=== PATIENT | female | born 1960 | race Caucasian/White ===

== ENCOUNTER → 2016-04-10 | Outpatient (CLI) | payer BC ==
--- NOTE | 2016-04-10 12:48 | US ---
Complete Pelvic Sonography (Transabdominal and Endovaginal) Clinical History: 55-year-old female who is perimenopausal and was noted to have a questionable fibro id during a gynecologic exam. The patient's LMP was March 04, 2016, and she is G2, P1. Rule out lei omyoma. The patient also has some excessive and/or frequent menstruation. ICD-10 Diagnostic Codes: D52.9 and N92.0. Technique: Initially, a curvilinear 5 MHz transducer was used to sonographically evaluate the pelvis, using a moderately distended urinary bladder as a window. To better assess the uterine architecture and the adnexal structures, endovaginal pelvic sonography was also performed. Cine clips are also per formed. Comparison Study: None available. Findings: Transabdominal Pelvic Sonography: The uterus is enlarged and heterogeneous in echotexture, measuring 13.9 x 7.7 x 9.9 cm. There is an intramural heterogeneously appearing fundal fibroid measuring 7.2 x 6.8 x 5.3 cm seen to the right of midline. There is an intramural vascular fibroid seen in the anteri or right mid-uterine body measuring 4.2 x 4.2 x 4.5 cm, and a third fibroid seen along the posterior left lower uterine segment, intramural in location and heterogeneous in appearance measuring 4.2 x 4. 7 x 4.2 cm. The endometrium appears mildly thickened. The right ovary is not confidently seen, howeve r, the left ovary is identified and contains a couple of follicular cysts which will be better assess ed endovaginally. There is no free fluid observed. Endovaginal Pelvic Sonography: There are some small nabothian cysts at the level of the cervix. The r ight ovary measures 1.8 x 0.8 x 1.7 cm, with some venous flow observed. The left ovary measures 3.8 x 2.7 x 4.3 cm, and contains a 3.6 x 2.2 x 2.6 cm avascular anechoic cyst with anterior reverberation artifact, as well as a 2.6 x 1.6 x 2.3 cm anechoic cyst. Intraovarian vascular flow is documented. Th e endometrial thickness is 10 mm. There is no free fluid. On the cine clip (A:6), there are some mild left-sided venous varices measuring 3.4-4.2 mm in diameter, consistent with some mild pelvic venous congestion. Impression: 1. Uteromegaly and myometrial heterogeneity with three discrete fibroids observed, as above enumerate d. 2. Mild thickening of the endometrium measuring 10 mm. 3. There are a couple of simple cysts associated with the left ovary measuring up to 2.6-3.6 cm in di ameter. 4. Mild left-sided pelvic venous congestion.
== END ==
LOC: FIMAGING 09:24
PROVIDERS: ATTEND Internal Medicine
DX: D25.1 Intramural leiomyoma of uterus (principal); N85.2 Hypertrophy of uterus; N83.292 Other ovarian cyst, left side; N94.89 Other specified conditions associated with female genital organs and menstrual cycle